=== PATIENT | female | born 1990 | race Hispanic/Latino ===

== ENCOUNTER 2016-10-31 18:49 | Emergency (ER) | payer MEDICARE, OTHER ==
[~2016-10-31] VITALS: Ht 154.9 cm; Wt 64.0 kg
[2016-10-31 18:50] VITALS: BP 120/85
[2016-10-31] MEDS ORDERED: PRENATAL VITAMIN PO (19:04)
[2016-10-31 21:00] LABS: BASO % 0.3 % (0.0-1.0); EOS # 0.1 K/mm3 (0.0-0.50); EOS % 1.2 % (0.0-3.0); LARGE UNSTAINED CELL # 0.1 K/mm3 (0.0-0.4); LARGE UNSTAINED CELL % 0.6 % (0.0-4.0); LYMPH % 20.7 % (24.0-44.0); MEAN CORPUSCULAR HEMOGLOBIN 32.1 pg (27.0-33.0); MEAN CORPUSCULAR HGB CONC 34.3 g/dl (32.0-36.5); MEAN CORPUSCULAR VOLUME 93.5 fl (80.0-96.0); MONO # 0.5 K/mm3 (0.0-0.8); MONO % 5.6 % (0.0-5.0); NEUTROPHILS # 6.6 K/mm3 (1.8-7.7); NEUTROPHILS % 71.6 % (36.0-66.0); PLATELET COUNT, AUTOMATED 274 k/mm3 (150-450); WHITE BLOOD COUNT 9.3 K/mm3 (4.0-10.0)
--- NOTE | 2016-10-31 22:40 | REPUSA ---
Clinical history: [employer]. Findings: Real-time transabdominal and transvaginal ultrasound images of the pelvis were obtained. An anteverted uterus is noted, measuring 9.1 x 3.8 x 5.2 cm. There is an intrauterine gestational sac n oted with a mean sac diameter of 8.4 mm. No pole or yolk sac is identified. The right ovary me asures 2.7 x 2.0 x 2.4 cm. The left ovary measures 2.9 x 2.2 x 2.3 cm. No adnexal masses are seen. Color Doppler flow is seen within both ovaries. There is a trace amount of free fluid. Impression: 1. Single intrauterine gestational sac appreciated. There is no discrete evidence of a pole at this time, likely because of the early age of the gestation. The gestation measures 5 weeks 4 days by ultrasound measurements. Follow-up with serial beta hCG levels may be helpful for further evaluation .
== END 2016-10-31 23:48 | disposition home or self-care (01) ==
LOC: M ED 19:46
DX: O20.0 Threatened abortion (principal); Z3A.01 Less than 8 weeks gestation of pregnancy; O99.351 Diseases of the nervous system complicating pregnancy, first trimester; G80.9 Cerebral palsy, unspecified; R10.2 Pelvic and perineal pain

== ENCOUNTER 2017-03-29 06:30 | Emergency (ER) | payer MEDICARE, OTHER ==
[~2017-03-29] VITALS: Ht 154.9 cm; Wt 75.4 kg
[~2017-03-29 06:30] MED LIST: PRENATAL VITAMIN PO
--- NOTE | 2017-03-29 07:20 | REPUSA ---
CLINICAL HISTORY: Headaches. TECHNIQUE: Multiple axial brain CT scan sections were obtained from base to vertex without contrast a dministration. COMMENTS: Mildly dilated posterior horn of the right lateral ventricle. Right parietal ventriculoperitoneal shunt is in good position with its tip in the body of the left la teral ventricle. The study shows normal configuration of sella turcica. There are no intra or extra-axial collections. There is no mass effect or midline shift. There is no evidence of hematoma formation. No hydrocephal us is present. No abnormal calcifications are noted. No significant abnormalities are seen either in the posterior fossa or supratentorial compartment. The sinuses and mastoid air cells are patent. IMPRESSION: Mildly dilated the posterior horn of the right lateral ventricle. Right ventricular peritoneal shunt is in good position. No evidence of acute intracranial pathology. Thank you for your kind referral of this patient.
[2017-03-29] MEDS ORDERED: PERCOCET 5MG/325MG TAB PO ONE (07:45)
[2017-03-29 07:52] LABS: BASO % 0.3 % (0.0-1.0); EOS # 0.2 K/mm3 (0.0-0.50); EOS % 1.9 % (0.0-3.0); LARGE UNSTAINED CELL # 0.2 K/mm3 (0.0-0.4); LARGE UNSTAINED CELL % 1.6 % (0.0-4.0); LYMPH # 1.5 K/mm3 (1.5-6.5); LYMPH % 12.8 % (24.0-44.0); MEAN CORPUSCULAR HEMOGLOBIN 31.6 pg (27.0-33.0); MEAN CORPUSCULAR HGB CONC 34.7 g/dl (32.0-36.5); MEAN CORPUSCULAR VOLUME 91.1 fl (80.0-96.0); MONO # 0.7 K/mm3 (0.0-0.8); MONO % 5.9 % (0.0-5.0); NEUTROPHILS # 9.2 K/mm3 (1.8-7.7); NEUTROPHILS % 77.5 % (36.0-66.0); PLATELET COUNT, AUTOMATED 234 k/mm3 (150-450); RED CELL DISTRIBUTION WIDTH 12.4 % (11.5-14.5); WHITE BLOOD COUNT 11.9 K/mm3 (4.0-10.0)
[2017-03-29 08:11] LABS: ALBUMIN 2.8 GM/DL (3.2-5.2); ALBUMIN/GLOBULIN RATIO 0.78 (1.00-1.93); ALKALINE PHOSPHATASE 102 U/L (45-117); ALT/SGPT 27 U/L (12-78); ANION GAP 8 MEQ/L (8-16); AST/SGOT 21 U/L (15-37); BILIRUBIN,DIRECT 0.1 MG/DL (0.0-0.2); BILIRUBIN,TOTAL 0.5 MG/DL (0.2-1.0); BLOOD UREA NITROGEN 7 MG/DL (7-18); CALCIUM LEVEL 8.7 MG/DL (8.5-10.1); CARBON DIOXIDE LEVEL 26 MEQ/L (21-32); CHLORIDE LEVEL 109 MEQ/L (98-107); CREATININE FOR GFR 0.41 MG/DL (0.55-1.02); GLOMERULAR FILTRATION RATE > 60.0 (>60); GLUCOSE, FASTING 82 MG/DL (70-105); POTASSIUM SERUM 3.6 MEQ/L (3.5-5.1); SODIUM LEVEL 143 MEQ/L (136-145); TOTAL PROTEIN 6.4 GM/DL (6.4-8.2)
[2017-03-29 08:21] LABS: ERYTHROCYTE SEDIMENTATION RATE 56 mm/hr (0-20)
[2017-03-29] MEDS ORDERED: PROMETHAZINE INJ 25 MG/ML VIAL (J2550) IV ONE (10:00)
[2017-03-29] MEDS ORDERED: NS 1,000 ML IV ONE (10:00)
[2017-03-29] MEDS ORDERED: MORPHINE 4 MG/ML 1ML SYRINGE IV ONE (10:00)
[2017-03-29 14:01] VITALS: BP 126/70
--- NOTE | 2017-03-30 08:03 | ED PDOC ---
Post-Departure Follow-Up radiology report faxed to Janie Zamudio Sarah MD Mar 30, 2017 08:03
== END 2017-03-29 14:07 | disposition home or self-care (01) ==
LOC: M ED 06:30
DX: O26.892 Other specified pregnancy related conditions, second trimester (principal); R51 Headache; Z3A.26 26 weeks gestation of pregnancy; Z79.899 Other long term (current) drug therapy

== ENCOUNTER 2017-04-18 12:23 | Emergency (ER) | payer MEDICARE, OTHER ==
[~2017-04-18] VITALS: Ht 154.9 cm; Wt 73.6 kg
[2017-04-18] MEDS ORDERED: FIOR1CAP (12:36)
[2017-04-18] MEDS ORDERED: Tylenol (12:36)
[2017-04-18] MEDS ORDERED: ZOFR20TA (12:36)
[2017-04-18 14:02] LABS: BASO % 0.3 % (0.0-1.0); EOS # 0.1 10^3/uL (0.0-0.50); EOS % 0.9 % (0.0-3.0); IMMATURE GRANULOCYTE % 1.2 % (0-0); LYMPH # 1.7 10^3/uL (1.5-6.5); LYMPH % 14.9 % (24.0-44.0); MEAN CORPUSCULAR HEMOGLOBIN 29.3 pg (27.0-33.0); MEAN CORPUSCULAR HGB CONC 33.1 g/dl (32.0-36.5); MEAN CORPUSCULAR VOLUME 88.5 fl (80.0-96.0); MONO % 8.3 % (0.0-5.0); NEUTROPHILS # 8.6 10^3/uL (1.8-7.7); NEUTROPHILS % 74.4 % (36.0-66.0); PLATELET COUNT, AUTOMATED 241 10^3/uL (150-450); RED CELL DISTRIBUTION WIDTH 12.3 % (11.5-14.5); WHITE BLOOD COUNT 11.5 10^3/uL (4.0-10.0)
[2017-04-18 14:22] LABS: ANION GAP 6 MEQ/L (8-16); BLOOD UREA NITROGEN 6 MG/DL (7-18); CALCIUM LEVEL 8.6 MG/DL (8.5-10.1); CARBON DIOXIDE LEVEL 27 MEQ/L (21-32); CHLORIDE LEVEL 106 MEQ/L (98-107); GLOMERULAR FILTRATION RATE > 60.0 (>60); GLUCOSE, FASTING 84 MG/DL (70-105); POTASSIUM SERUM 3.7 MEQ/L (3.5-5.1); SODIUM LEVEL 139 MEQ/L (136-145)
[2017-04-18 14:30] LABS: ERYTHROCYTE SEDIMENTATION RATE 49 mm/hr (0-20)
[2017-04-18] MEDS ORDERED: D5W/0.45% SODIUM CHLORIDE 1,000 ML IV SCH (14:30)
[2017-04-18] MEDS ORDERED: FIORICET TAB PO ONE (15:00)
[2017-04-18 15:44] VITALS: BP 121/77
== END 2017-04-18 15:45 | disposition short-term general hospital (02) ==
LOC: M ED 12:23
DX: H47.10 Unspecified papilledema (principal); H47.0 Disorders of optic nerve, not elsewhere classified; Z98.2 Presence of cerebrospinal fluid drainage device; Z3A.29 29 weeks gestation of pregnancy

== ENCOUNTER 2019-05-20 15:25 | Inpatient (IN) | payer OTHER ==
[~2019-05-20] VITALS: Ht 154.9 cm; Wt 82.3 kg
[~2019-05-20 15:25] MED LIST changes: +FIOR1CAP; +Tylenol; +ZOFR4TAB16
[2019-05-20] MEDS ORDERED: CITA10TA5 PO (15:33)
[2019-05-20] MEDS ORDERED: OTC ALLERGY MED (15:33)
[2019-05-20 17:09] LABS: HEMATOCRIT 45.6 % (36.0-47.0); HEMOGLOBIN 15.4 g/dl (12.0-15.5); MEAN CORPUSCULAR HEMOGLOBIN 31.3 pg (27.0-33.0); MEAN CORPUSCULAR HGB CONC 33.8 g/dl (32.0-36.5); MEAN CORPUSCULAR VOLUME 92.7 fl (80.0-96.0); PLATELET COUNT, AUTOMATED 288 10^3/uL (150-450); RED BLOOD COUNT 4.92 10^6/uL (4.00-5.40); WHITE BLOOD COUNT 7.6 10^3/uL (4.0-10.0)
[2019-05-20 17:25] LABS: AMPHETAMINES LEVEL URINE NEGATIVE (NEGATIVE); BARBITURATES URINE NEGATIVE (NEGATIVE); BENZODIAZEPINES URINE NEGATIVE (NEGATIVE); CANNABINOIDS URINE NEGATIVE (NEGATIVE); COCAINE METABOLITE URINE NEGATIVE (NEGATIVE); METHADONE URINE NEGATIVE (NEGATIVE); OPIATES URINE NEGATIVE (NEGATIVE); PHENCYCLIDINE URINE NEGATIVE (NEGATIVE)
[2019-05-20 17:38] LABS: HCG, SERUM QUALITATIVE NEGATIVE (NEGATIVE)
[2019-05-20 17:54] LABS: ACETAMINOPHEN LEVEL < 2.0 UG/ML (10.0-30.0); ALBUMIN 3.7 GM/DL (3.2-5.2); ALT/SGPT 27 U/L (12-78); BILIRUBIN,DIRECT 0.1 MG/DL (0.0-0.2); BILIRUBIN,TOTAL 0.6 MG/DL (0.2-1.0); BLOOD UREA NITROGEN 10 MG/DL (7-18); CALCIUM LEVEL 9.2 MG/DL (8.5-10.1); CARBON DIOXIDE LEVEL 28 MEQ/L (21-32); CHLORIDE LEVEL 108 MEQ/L (98-107); ETHYL ALCOHOL (ETHANOL) < 0.003 % (0.000-0.010); GLOMERULAR FILTRATION RATE > 60.0 (>60); GLUCOSE, FASTING 80 MG/DL (70-100); POTASSIUM SERUM 3.8 MEQ/L (3.5-5.1); SALICYLATE LEVEL < 1.7 MG/DL (5.0-30.0); SODIUM LEVEL 141 MEQ/L (136-145); TOTAL PROTEIN 7.4 GM/DL (6.4-8.2)
[2019-05-20] MEDS ORDERED: ACETAMINOPHEN TAB 650MG DOSE (2X325MG) PO PRN (18:15)
[2019-05-20] MEDS ORDERED: MAALOX 30 ML SUSP *UDC PO PRN (18:15)
[2019-05-20] MEDS ORDERED: traZODone 50 MG TAB PO PRN (18:15)
[2019-05-20] MEDS ORDERED: MOM 30ML SUSPENSION UDC PO PRN (18:15)
[2019-05-20] MEDS ORDERED: ALL10TAB29 PO (18:43)
[2019-05-20 20:16] VITALS: BP 110/76
[2019-05-21 06:24] VITALS: BP 122/77
[2019-05-21] MEDS ORDERED: INFLUENZA QUADRIVALENT PF VACCINE 0.5ML SYRINGE (90686) IM ONE (09:00)
--- NOTE | 2019-05-21 10:34 | HPEPDOC ---
General Date of Admission May 20, 2019 at 18:13 Date of Service: May 21, 2019 Chief Complaint The patient is a 29-year-old female admitted with a reason for visit of Unspecified Depressive Disorder. Source: Patient Exam Limitations: No limitations History of Present Illness This is a 29 years old pleasant white female with past medical history of cere bral palsy, status post BUILDING CERTIFIER shunt placement, anxiety, depression, admitted to inpatient psych unit with suicidal ideations. Patient offers no new complaints. No chest pain, shortness of breath, nausea, vomiting, diarrhea, dizziness, etc. Home Medications Scheduled Cetirizine HCl (Cetirizine HCl) 10 Mg Tablet, 10 MG PO DAILY, (Reported) Citalopram Hydrobromide (Citalopram HBr) 10 Mg Tablet, 10 MG PO DAILY, (Repo rted) PT RAN OUT OF MEDICATION 10 DAYS AGO. Allergies Coded Allergies: gentamicin (Verified Adverse Reaction, Severe, RINGING IN EARS, 05/20/19) Past Medical History Medical History Cerebral palsy, BUILDING CERTIFIER shunt placement, depression, anxiety Surgical History , Left arm lengthening surgery. 2 eye surgeries and dental surgery Social History * Smoker: Denies Alcohol: Denies Drugs: denies A-FIB/CHADSVASC A-FIB History Current/History of A-Fib/PAF?: No Review of Systems Constitutional: Denies: Chills, Fever, Malaise, Night Sweats, Weakness, Fatigue, Weight Loss, Lethargy, Other Eyes: Denies: Pain, Vision change, Conjunctivae inflammation, Eyelid inflammation, Redness, Other ENT: Denies: Head Aches, Ear Pain, Dysphagia, Sinus Congestion, Post Nasal Drip, Sore Throat, Epistaxis, Other Symptoms Skin: Denies: Rash, Lesions, Jaundice, Bruising, Itching, Dry, Breakdown, Nail Changes, Other Pulmonary: Denies: Dyspnea, Cough, Pleuritic Chest Pain, Other Symptoms Cardiovascular: Denies: Chest Pain, Palpitations, Orthopnea, Paroxysmal Noc. Dyspnea, Edema, Lt Headedness, Other Symptoms Gastrointestinal: Denies: Nausea, Vomiting, Abdominal Pain, Diarrhea, Constipation, Melena, Hematochezia, Other Symptoms Genitourinary: Denies: Dysuria, Frequency, Incontinence, Hematuria, Retention, Other Symptoms Hematologic: Denies: Bruising, Bleeding Excessively, Petecchia, Purpura, Enlarged Lymph Nodes, Other Hematologic Endocrine: Denies: Polydipsia, Polyphagia, Polyuria, Heat Intolerance, Cold Intolerance, Other Endocrine Sx Musculoskeletal: Denies: Neck Pain, Back Pain, Shoulder Pain, Arm Pain, Hand Pain, Leg Pain, Foot Pain, Joint Pain, Muscle Pain, Spasms, Other Symptoms Neurological: Denies: Weakness, Numbness, Incoordination, Change in speech, Confusion, Seizures, Other Symptoms Psych: Denies: Mood Normal, Anxiety, Depression, Memory Issues, Thoughts of Self Harm, Anger, Thoughts of Harming Other, Other Psych Physical Examination General Exam: Positive: Alert, Cooperative Eye Exam: Positive: PERRLA, Conjunctiva & lids normal ENT Exam: Positive: Atraumatic Neck Exam: Positive: Supple Chest Exam: Positive: Clear to auscultation, Normal air movement Heart Exam: Positive: Rate Normal, Normal S1, Normal S2 Abdomen Exam: Positive: Normal bowel sounds, Soft Skin Exam: Positive: Nl turgor and temperature Psych Exam: Positive: Mental status NL, Oriented x 3 Vital Signs Vital Signs Date Time Temp Pulse Resp B/P (MAP) Pulse Ox O2 Delivery O2 Flow Rate FiO2 05/21/19 08:09 Room Air 05/21/19 06:24 99.6 92 16 122/77 (92) 05/20/19 20:16 97 Laboratory Data Labs 24H Laboratory Tests 2 05/20/19 16:52: Nucleated Red Blood Cells % (auto) 0.0, Anion Gap 5L, Glomerular Filtration Rate > 60.0, Calcium Level 9.2, Total Bilirubin 0.6, Direct Bilirubin 0.1, Aspartate Amino Transf (AST/SGOT) 13, Alanine Aminotransferase (ALT/SGPT) 27, Alkaline Phosphatase 117, Total Protein 7.4, Albumin 3.7, Albumin/Globulin Ratio 1.00, Thyroid Stimulating Hormone (TSH) 2.240, Human Chorionic Gonadotropin, Qual NEGATIVE, Salicylates Level < 1.7L, Urine Opiates Screen NEGATIVE, Urine Methadone Screen NEGATIVE, Acetaminophen Level < 2.0L, Urine Barbiturates Screen NEGATIVE, Urine Phencyclidine Screen NEGATIVE, Urine Amphetamines Screen NEGATIVE, Urine Benzodiazepines Screen NEGATIVE, Urine Cocaine Metabolite Screen NEGATIVE, Urine Cannabinoids Screen NEGATIVE, Ethyl Alcohol Level < 0.003 CBC/BMP Laboratory Tests 05/20/19 16:52 Problems (1) Cerebral palsy Status: Chronic Problem Text: Patient with history of cerebral palsy, status post BUILDING CERTIFIER shunt and multiple revisions of BUILDING CERTIFIER shunt in the past. . She is currently medical stable Continue all home medications Laboratory work done in ED, checked all within normal range Please call back as needed (2) Suicidal ideation Status: Acute Problem Text: Patient was admitted to a inpatient mental health unit Individual and group counseling Meds as per psych (3) Depression Status: Chronic Problem Text: As per psychiatry Plan / VTE VTE Prophylaxis Ordered?: No VTE Exclusion Mechanical Proph: Low Risk for VTE VTE Exclusion Pharmacological: At Low Risk for VTE RAPHAEL ZHENG MD May 21, 2019 10:34
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
[2019-05-21] MEDS ORDERED: CitaloPRAM (CeleXA) 10 MG TABLET PO ONE (13:00)
[2019-05-21] MEDS ORDERED: CETIRIZINE (ZyrTEC) 10 MG TAB PO ONE (13:00)
[2019-05-21 16:29] VITALS: BP 121/69
[2019-05-22 06:17] VITALS: BP 132/75
[2019-05-22] MEDS: CitaloPRAM (CeleXA) 10 MG TABLET PO SCH (08:24)
[2019-05-22] MEDS: CETIRIZINE (ZyrTEC) 10 MG TAB PO SCH (08:24)
--- NOTE | 2019-05-22 14:45 | MHIPN ---
DATE: 05/22/2019 VITAL SIGNS: Temperature 98.4, pulse 84, respirations 16, blood pressure 132/75. CURRENT MEDICATIONS: - Celexa 10 mg by mouth daily HISTORY OF PRESENT ILLNESS: This is a 29-year-old white female, , whose is in the [employer] here at [place]. The patient has cerebral palsy. The patient was hospitalized with suicidal ideation with an episode of depressive symptoms. THe patient ran out of her medications about 10 days prior to admission and her mood became severely depressed. She complained of lack of interest with fatigue and suicidal thoughts. Her appetite has been increased and she has gained weight recently. She feels overwhelmed by multiple situational stressors. The patient has a toddler who is very active. The patient cannot drive. Her son needs lots of attention. She is worried about [place] plans with visiting family down in [place]. She is afraid that her [id number] may overstay her welcome and that the patient may be criticized because of this. The patient had a similar episode of depression in her senior year of high school. She was on medications for a year and she took an overdose of Lexapro at that time but was not hospitalized. In the interim, she went to college and grad school. Her mood was reasonably good and she had a good support system. The patient became depressed again over the last year or two since her son was born. The patient is in treatment at [place]. Her is supportive. The patient was just restarted on the Celexa, which she has found helpful. MENTAL STATUS EXAMINATION: The patient is alert, oriented, cooperative. Grooming and hygiene are good. Speech is appropriate. Thought process is linear. No signs of psychosis. The patient is not hearing voices. Depression is mild. No signs of paranoia or thought disorder. Eye contact is good. Insight and judgment appear fair. No signs of cognitive deficits. No signs of impulsivity. DIAGNOSES: 1. Unspecified depressive disorder. 2. Rule out major depressive disorder, recurrent. ASSESSMENT: The patient has had a number of situational stressors, which have aggravated her depressive disorder in combination with stopping her medication. She thinks that the Celexa was more helpful than she realized. She tolerates the Celexa well and feels comfortable with restarting it. The patient is finding the group therapy quite helpful here. DIAGNOSES: 1. Depressive disorder, unspecified. 2. Anxiety disorder, unspecified. PLAN: Continue present management. MARY
[2019-05-22 15:33] VITALS: BP 103/69
[2019-05-23 06:39] VITALS: BP 110/70
[2019-05-23] MEDS: CETIRIZINE (ZyrTEC) 10 MG TAB PO SCH (08:20)
[2019-05-23] MEDS: CitaloPRAM (CeleXA) 10 MG TABLET PO SCH (08:20)
--- NOTE | 2019-05-23 13:51 | MHIPN ---
DATE: 05/23/2019 VITAL SIGNS: Temperature 97.1, pulse 100, respirations 18, blood pressure 110/70. CURRENT MEDICATIONS: - 10 mg every morning - trazodone 50 mg at bedtime as needed HISTORY OF PRESENT ILLNESS: Patient has found the therapy program here quite helpful with the art therapy and group therapy programs. She reports her mood is gradually improving. Her suicidal ideation has resolved. She spoke to her mother for the first time on the phone earlier today. Her mother was supportive. The patient was able to be assertive with her mother, showing improving insight and self esteem. She feels more confident about the future. She feels confident about her coping skills. Her activities of daily living are improving. Her appetite has been good. She no longer feels helpless or hopeless. She finds the trazodone helpful for sleep. The patient has no other complaints. MENTAL STATUS EXAMINATION: The patient is alert, oriented and cooperative. Grooming and hygiene appeared quite good. Speech is appropriate. The patient is not psychotic. Eye contact remains good. Insight and judgment seem much improved. Depressive symptoms appear to be resolving. No sense of impulsivity or dangerousness. DIAGNOSIS: Unspecified depressive disorder. Rule out major depression, recurrent. ASSESSMENT: Patient responding well to resumption of the antidepressant at a low dosage. She is responding well to the therapy program as well. She feels more optimistic about the future. DIAGNOSIS: Depressive disorder, unspecified. Anxiety disorder, unspecified. PLAN: Continue present management. Start to work on discharge planning for tomorrow.
[2019-05-23 16:16] VITALS: BP 109/66
[2019-05-24 05:57] VITALS: BP 111/69
[2019-05-24] MEDS: CitaloPRAM (CeleXA) 10 MG TABLET PO SCH (08:21)
[2019-05-24] MEDS: CETIRIZINE (ZyrTEC) 10 MG TAB PO SCH (08:21)
[2019-05-24] MEDS ORDERED: CELE10TA PO (08:28)
--- NOTE | 2019-05-26 12:04 | MHDS ---
DATE OF ADMISSION: 05/20/2019 DATE OF DISCHARGE: 05/24/2019 VITAL SIGNS: Temperature 98.7, pulse 82, respirations 16, blood pressure 111/69. LABS: CBC and differential within normal limits. Serum chemistry within normal limits except for elevated chloride at 108. Anion gap low at 5. test negative. Toxicology screen for alcohol negative. Urine toxicology screen negative. CHIEF COMPLAINT: Suicidal ideation. DIAGNOSIS: Depression unspecified MEDICATIONS: [id number] mg po qd HISTORY OF PRESENT ILLNESS: This is a 29-year-old white female whose is in the [employer]. Patient has cerebral palsy. Patient was seen on admission by Dr. Osorio. Patient had been on Celexa 10 mg per day for her depressive disorder. Patient ran out of the medication about 10 days prior to admission and mood promptly decompensated. She felt helpless and hopeless. She had poor attention to activities of daily living (ADLs). She felt overwhelmed by the stress of dealing with her young toddler who is very active. Patient feels isolated at home as she cannot drive. PROGRESS ON THE UNIT: Patient was placed back on Celexa at 10 mg per day by Dr[address] Osorio. Patient tolerated the medication well. The patient's mood gradually improved. She was quite active in our milieu therapy program. She found it quite beneficial. This helped her self-esteem. She problem solved on her various situational stressors. She hopes to get her son into daycare at [facility] for example. Patient's suicidal ideation resolved completely. The patient's was contacted and felt comfortable having her return [place] MENTAL STATUS EXAMINATION: At the time of discharge mood and affect was much improves. Anxiety was minimal. Affect was much improved. Suicidal ideation had resolved. Depressive symptoms were minimal. She felt hopeful about the future. No signs of psychosis. Grooming and hygiene was good. Cognitive functions were intact. No signs of impulsivity or dangerousness. ASSESSMENT: Patient responded well to restarting her psychotropic medication and benefiting to milieu therapy. PLAN: Patient discharged to the community with outpatient mental health followup. MARY
== END 2019-05-24 13:07 | disposition home or self-care (01) | DRG 881 ==
LOC: M ED 15:25 → M ED INP 18:13 → M PSY 18:53
PROVIDERS: ADMIT Psychiatry & Neurology Addiction Medicine; ATTEND Psychiatry & Neurology Psychiatry
DX: F32.9 Major depressive disorder, single episode, unspecified (principal); R45.851 Suicidal ideations; F41.9 Anxiety disorder, unspecified; Z91.14 Patient's other noncompliance with medication regimen; Z62.811 Personal history of psychological abuse in childhood; Z88.1 Allergy status to other antibiotic agents; Z88.8 Allergy status to other drugs, medicaments and biological substances; G80.9 Cerebral palsy, unspecified; Z98.2 Presence of cerebrospinal fluid drainage device; Z91.5 Personal history of self-harm

== ENCOUNTER 2020-03-30 19:26 | Emergency (ER) | payer OTHER ==
[~2020-03-30] VITALS: Ht 154.9 cm; Wt 84.9 kg
[~2020-03-30 19:26] MED LIST changes: +CELE10TA PO; +CETI-24 PO; +CITA10TA5 PO; +OTC ALLERGY MED
[2020-03-30] MEDS ORDERED: PARO20TA3 (19:45)
--- NOTE | 2020-03-30 21:09 | REPVR ---
PROCEDURE INFORMATION: Exam: XR Shunt Series With 4 XR Procedures Exam date and time: 03/30/2020 8:47 PM Age: 30 years old Clinical indication: Other: Headache; Other: [facility]; Prior surgery TECHNIQUE: Imaging protocol: XR Shunt Series was performed with skull less than 4 views, neck 1 view, chest 1 view, and abdomen 1 view. COMPARISON: CT Head without contrast 03/29/2017 6:50 AM FINDINGS: Tubes, catheters and devices: Right parietal ventricular catheter is present. The shunt catheter is intact, extending through the chest terminating in the pelvis. Three additional disused catheters fragments are also present. Sinuses: Visualized paranasal sinuses are well aerated. Airway: Upper airway and trachea are unremarkable in the neck and chest. Lungs: No consolidations. Gastrointestinal tract: Bowel is unremarkable. Bones/joints: Normal. No fracture. No dislocation. Soft tissues: Unremarkable. IMPRESSION: 1. Intact right parietal shunt catheter. 2. No acute findings. Electronically signed by: Allan Harley On 03/30/2020 21:08:52 PM
[2020-03-30 21:14] LABS: HEMATOCRIT 46.2 % (36.0-47.0); HEMOGLOBIN 15.9 g/dl (12.0-15.5); MEAN CORPUSCULAR HEMOGLOBIN 30.4 pg (27.0-33.0); MEAN CORPUSCULAR HGB CONC 34.4 g/dl (32.0-36.5); MEAN CORPUSCULAR VOLUME 88.3 fl (80.0-96.0); PLATELET COUNT, AUTOMATED 380 10^3/uL (150-450); RED BLOOD COUNT 5.23 10^6/uL (4.00-5.40)
--- NOTE | 2020-03-30 21:17 | REPVR ---
PROCEDURE INFORMATION: Exam: CT Abdomen And Pelvis Without Contrast Exam date and time: 03/30/2020 8:48 PM Age: 30 years old Clinical indication: Abdominal pain; Localized; Left lower quadrant (llq); Additional info: Abd pain llq TECHNIQUE: Imaging protocol: Computed tomography of the abdomen and pelvis without contrast. Radiation optimization: All CT scans at this facility use at least one of these dose optimization techniques: automated exposure control; mA and/or kV adjustment per patient size (includes targeted exams where dose is matched to clinical indication); or iterative reconstruction. COMPARISON: CR SHUNT SERIES 03/30/2020 8:30 PM FINDINGS: Tubes, catheters and devices: Three disconnected shunt catheter fragments are present. An additional intact catheter extends into the anterior abdomen extending to the midline pelvis. Liver: Normal. No mass. Gallbladder and bile ducts: Normal. No calcified stones. No ductal dilation. Pancreas: Normal. No ductal dilation. Spleen: Normal. No splenomegaly. Adrenals: Normal. No mass. Kidneys and ureters: Normal. No hydronephrosis. Stomach and bowel: Unremarkable. No obstruction. No mucosal thickening. Appendix: No evidence of appendicitis. Intraperitoneal space: Mild free fluid in the pelvis. No perishunt pseudocyst or other loculated fluid collection. Vasculature: Unremarkable. No abdominal aortic aneurysm. Lymph nodes: Unremarkable. No enlarged lymph nodes. Bladder: Unremarkable as visualized. Reproductive: Unremarkable as visualized. Bones/joints: Unremarkable. No acute fracture. Soft tissues: Unremarkable. IMPRESSION: 1. No acute findings. 2. Intact shunt catheter. Additional catheter fragments. 3. Mild free fluid in the pelvis. Electronically signed by: Allan Harley On 03/30/2020 21:16:34 PM
[2020-03-30 21:46] LABS: ALBUMIN 3.7 GM/DL (3.2-5.2); ALT/SGPT 33 U/L (12-78); BILIRUBIN,DIRECT < 0.1 MG/DL (0.0-0.2); BILIRUBIN,TOTAL 0.3 MG/DL (0.2-1.0); BLOOD UREA NITROGEN 17 MG/DL (7-18); CALCIUM LEVEL 9.4 MG/DL (8.5-10.1); CARBON DIOXIDE LEVEL 26 MEQ/L (21-32); CHLORIDE LEVEL 109 MEQ/L (98-107); CREATININE FOR GFR 0.74 MG/DL (0.55-1.30); GLOMERULAR FILTRATION RATE > 60.0 (>60); GLUCOSE, FASTING 105 MG/DL (70-100); SODIUM LEVEL 140 MEQ/L (136-145); TOTAL PROTEIN 7.8 GM/DL (6.4-8.2)
[2020-03-30 22:08] VITALS: BP 126/82
== END 2020-03-30 22:10 | disposition home or self-care (01) ==
LOC: M ED 19:26
DX: R10.32 Left lower quadrant pain (principal); R51 Headache; G80.9 Cerebral palsy, unspecified; Z88.1 Allergy status to other antibiotic agents; Z98.2 Presence of cerebrospinal fluid drainage device; Z79.899 Other long term (current) drug therapy

== ENCOUNTER → 2020-07-11 | Outpatient (CLI) | payer OTHER ==
[~2020-07-11] MED LIST changes: +PARO20TA3; +PARO30TA4 PO
== END ==
LOC: M LABSMTC 08:11
PROVIDERS: ATTEND Anesthesiology
DX: Z01.812 Encounter for preprocedural laboratory examination (principal); Z20.828 Contact with and (suspected) exposure to other viral communicable diseases

== ENCOUNTER 2020-07-16 07:50 | Day surgery (SDC) | payer OTHER ==
[~2020-07-16] VITALS: Ht 154.9 cm; Wt 87.5 kg
[~2020-07-16 07:50] MED LIST changes: +LIDOCAINE 2% 100MG/5ML SDV (FOR ANES.) As Ordered ONE; +NS 1,000 ML IV ONE; +propofoL 500 MG/50 ML VIAL As Ordered ONE
[2020-07-16] MEDS ORDERED: AMOX500C PO (09:07)
[2020-07-16] MEDS ORDERED: MIRA3350 PO (09:07)
[2020-07-16] MEDS ORDERED: TYLE650T38 PO (09:10)
[2020-07-16] MEDS ORDERED: TUMS500C PO (09:10)
[2020-07-16] MEDS ORDERED: CLAR10CA3 PO (09:10)
[2020-07-16] MEDS ORDERED: HYDR1CRE93 TOP (09:10)
--- NOTE | 2020-07-16 10:12 | ROOR ---
Patient Name: Catie Kam Procedure Date: 07/16/2020 9:31 AM Date of : 1990 Age: 30 Room: [facility] Gender: Female Note Status: Finalized Procedure: Colonoscopy Indications: Hematochezia, Suspected irritable bowel syndrome, Irritable bowel syndrome with constipation Providers: Killian FAUST MD Referring MD: KAI DUVALL MD Requesting Provider: Medicines: Monitored Anesthesia Care Complications: No immediate complications. Procedure: Pre-Anesthesia Assessment: - The heart rate, respiratory rate, oxygen saturations, blood pressure, adequacy of pulmonary ventilation, and response to care were monitored throughout the procedure. The Colonoscope was introduced through the anus and advanced to 10 cm into the ileum. The colonoscopy was performed without difficulty. The patient tolerated the procedure well. The quality of the bowel preparation was good. Findings: Small Internal Hemorrhoids. The colon (entire examined portion) was moderately redundant. The entire examined colon appeared normal on direct and retroflexion views. The terminal ileum appeared normal. Impression: - Small Internal Hemorrhoids. - The entire examined colon is normal on direct and retroflexion views. - The examined portion of the ileum was normal. - No specimens collected. - Note is made of a long redundant colon-likely prone to irregularity, constipation, incomplete emptying symptoms. Recommendation: - Use Linzess (linaclotide) 290 mcg PO daily. - (the script was sent to your pharmacy on file) - Discontinue Miralax. Procedure Code(s): --- Professional --- 35539, Colonoscopy, flexible; diagnostic, including collection of specimen(s) by brushing or washing, when performed (separate procedure) Diagnosis Code(s): --- Professional --- Q43.8, Other specified congenital malformations of intestine K58.1, Irritable bowel syndrome with constipation K92.1, Melena (includes Hematochezia) CPT copyright 2019 [employer]. All rights reserved. The codes documented in this report are preliminary and upon printing estimator review may be revised to meet current compliance requirements. Killian Faust MD Killian FAUST MD 07/16/2020 10:12:30 AM Electronically signed by Killian FAUST MD Number of Addenda: 0 Note Initiated On: 07/16/2020 9:31 AM Estimated Blood Loss: Estimated blood loss: none.
[2020-07-16 10:20] VITALS: BP 111/65
== END 2020-07-16 14:09 | disposition home or self-care (01) ==
LOC: M OPP 07:50
PROVIDERS: ATTEND Internal Medicine Gastroenterology
DX: K92.1 Melena (principal); K58.1 Irritable bowel syndrome with constipation; Q43.8 Other specified congenital malformations of intestine; K64.8 Other hemorrhoids; F41.9 Anxiety disorder, unspecified; F32.9 Major depressive disorder, single episode, unspecified; G43.909 Migraine, unspecified, not intractable, without status migrainosus; Z88.1 Allergy status to other antibiotic agents; Z79.899 Other long term (current) drug therapy; Z81.1 Family history of alcohol abuse and dependence; Z81.8 Family history of other mental and behavioral disorders; Z83.3 Family history of diabetes mellitus; Z82.49 Family history of ischemic heart disease and other diseases of the circulatory system; Z80.51 Family history of malignant neoplasm of kidney; Z82.0 Family history of epilepsy and other diseases of the nervous system